=== PATIENT | male | born 1995 | race African-American/Black ===

== ENCOUNTER 2020-12-30 00:17 | Emergency (ER) | payer OTHER, BC ==
[2020-12-30 00:45] LABS: Hemoglobin 13.2 g/dL (14.0-18.0); Mean Corpuscular Hemoglobin 25.5 pg (27.0-31.0); Mean Corpuscular Volume 79.8 fL (78.0-98.0); Platelet Count 280 thou/uL (130-400); RBC Distribution Width 13.6 % (11.5-14.5); Red Blood Cell (RBC) Count 5.19 mill/uL (4.70-6.10); White Blood Cell (WBC) Count 9.3 thou/uL (4.8-10.8)
[2020-12-30] MEDS ORDERED: Boostrix 0.5 ML (Tdap) VIAL ONE (00:56)
[2020-12-30 01:05] LABS: ALT (SGPT) 19 U/L (8-55); AST (SGOT) 30 U/L (5-34); Albumin 3.8 g/dL (3.5-5.0); Alkaline Phosphatase 89 U/L (40-110); Anion Gap 14 mmol/L (10-20); BUN (Urea Nitrogen) 9 mg/dL (8.9-20.6); Bilirubin, Total 0.4 mg/dL (0.2-1.2); Calc. Creatinine Clearance 0 mL/min (70-130); Calcium 8.8 mg/dL (7.8-10.44); Carbon Dioxide 21 mmol/L (22-29); Chloride 103 mmol/L (98-107); Globulin 4.9 g/dL (2.4-3.5); Glucose 147 mg/dL (70-105); Lipase 77 U/L (8-78); Potassium 3.5 mmol/L (3.5-5.1); Protein, Total 8.7 g/dL (6.0-8.3); Sodium 134 mmol/L (136-145)
[2020-12-30 01:05] LABS: Bilirubin Negative (Negative); Blood, Urine 1+ (Negative); Clarity Clear (Clear); Glucose, Urine (Dipstick) Normal (Negative); Ketone, Urine Negative (Negative); Leukocyte Negative Leu/uL (Negative); Nitrite Negative (Negative); Protein, Urine (Dipstick) 70 mg/dL (Neg-Trace); Specific Gravity, Urine 1.007 (1.002-1.036); Squamous Epithelial None Seen HPF (0-3); Urobilinogen Normal mg/dL (Less than 2); pH, Urine 5.5 (5.0-9.0)
[2020-12-30 01:06] LABS: Bacteria/HPF Rare-Few HPF (None Seen)
[2020-12-30 01:14] LABS: Band 2 % (5-11); Eosinophils 4 % (0-10); Lymphocytes 58 % (21-51); MDiff Complete? YES; Monocytes 6 % (0-10); Neutrophil 30 % (42-75)
[2020-12-30] MEDS ORDERED: Iopamidol-370 76% 500 ML 1 ML ONE (16:03)
== END 2020-12-30 02:30 | disposition home or self-care (01) ==
LOC: ERS 00:17
DX: S22.42XA Multiple fractures of ribs, left side, initial encounter for closed fracture (principal); S27.329A Contusion of lung, unspecified, initial encounter; F17.290 Nicotine dependence, other tobacco product, uncomplicated; V49.9XXA Car occupant (driver) (passenger) injured in unspecified traffic accident, initial encounter
CPT/HCPCS: 70450; 71045; 71260; 72125; 74177; 80053; 81003; 81015; 83690; 85025; 90471; 90715; 93005; G0390

== ENCOUNTER 2021-03-24 15:20 | Emergency (ER) | payer BC | END 2021-03-24 17:14 | disposition home or self-care (01) | LOC: ERS 15:20 | DX: S20.212A Contusion of left front wall of thorax, initial encounter (principal); W19.XXXA Unspecified fall, initial encounter; F17.210 Nicotine dependence, cigarettes, uncomplicated | CPT/HCPCS: 71046 ==

== ENCOUNTER 2021-12-11 15:50 | Emergency (ER) | payer SELFPAY ==
[2021-12-11] MEDS ORDERED: Lidocaine 2% PF 5 ML VIAL ONE (17:47)
[2021-12-11] MEDS ORDERED: Ketorolac Tromethamine 30 MG/ML VIAL ONE (18:32)
[2021-12-11] MEDS ORDERED: Morphine 4 MG/ML VIAL ONE (19:00)
== END 2021-12-11 19:41 | disposition home or self-care (01) ==
LOC: ERS 15:50
DX: K04.7 Periapical abscess without sinus (principal); K02.9 Dental caries, unspecified; F17.210 Nicotine dependence, cigarettes, uncomplicated
CPT/HCPCS: 64400; 96372; J1885; J2001; J2270